=== PATIENT | male | born 1975 | race Caucasian/White ===

== ENCOUNTER 2025-02-16 07:59 | Outpatient (CLI) | payer BC, SELFPAY | END 2025-02-16 08:00 | disposition home or self-care (01) | LOC: NFLDREF 02-22 00:24 | PROVIDERS: PCP Family Medicine; Referring Provider Family Medicine; Visit Provider Family Medicine | DX: E66.9 Obesity, unspecified (principal); Z12.5 Encounter for screening for malignant neoplasm of prostate; Z80.42 Family history of malignant neoplasm of prostate; Z13.6 Encounter for screening for cardiovascular disorders | CPT/HCPCS: 80053; 80061; G0103 ==

== ENCOUNTER 2025-03-22 10:07 | Outpatient (CLI) | payer BC, SELFPAY ==
--- NOTE | 2025-03-22 11:25 | P.ANES_ITS ---
Anesthesia Charges Start Date/Time Anesthesia Start Date: 03/22/25 Anesthesia Start Time: 10:55 Stop Date/Time Anesthesia Stop Date: 03/22/25 Anesthesia Stop Time: 11:25 Coding CPT Codes CPT Codes: ANES LWR INTST NDSC NOS - [id number] ([id number]) P3 - PATIENT W/SEVERE SYS DISEASE, QX - PETROLOGIST SVC W/ MD MED DIRECTION, QK - WIND ENERGY TECHNICIAN 2-4 CNCRNT ANES PROC
--- NOTE | 2025-03-22 11:25 | W.ANESCHARGE ---
Anesthesia Charges Start Date/Time Anesthesia Start Date: 03/22/25 Anesthesia Start Time: 10:55 Stop Date/Time Anesthesia Stop Date: 03/22/25 Anesthesia Stop Time: 11:25 Coding CPT Codes CPT Codes: ANES LWR INTST NDSC NOS - [id number] ([id number]) P3 - PATIENT W/SEVERE SYS DISEASE, QX - MECHANICAL SYSTEMS CONTROL ENGINEER SVC W/ MD MED DIRECTION, QK - FEEDER TENDER 2-4 CNCRNT ANES PROC
--- NOTE | 2025-03-22 11:34 | P.ANES_ITS ---
Anesthesia Charges Start Date/Time Anesthesia Start Date: 03/22/25 Anesthesia Start Time: 10:55 Stop Date/Time Anesthesia Stop Date: 03/22/25 Anesthesia Stop Time: 11:25 Coding CPT Codes CPT Codes: ANES LWR INTST NDSC NOS - [id number] ([id number]) QK - PAYABLE MANAGER 2-4 CNCRNT ANES PROC, QX - MILK HANDLER SVC W/ MED DIRECTION, P3 - PATIENT W/SEVERE SYS DISEASE
--- NOTE | 2025-03-22 11:34 | W.ANESCHARGE ---
Anesthesia Charges Start Date/Time Anesthesia Start Date: 03/22/25 Anesthesia Start Time: 10:55 Stop Date/Time Anesthesia Stop Date: 03/22/25 Anesthesia Stop Time: 11:25 Coding CPT Codes CPT Codes: ANES LWR INTST NDSC NOS - [id number] ([id number]) QK - WEB APPLICATIONS PROGRAMMER 2-4 CNCRNT ANES PROC, QX - GENERAL PRACTITIONER SVC W/ MED DIRECTION, P3 - PATIENT W/SEVERE SYS DISEASE
== END 2025-03-22 10:08 | disposition home or self-care (01) ==
LOC: OP CLINIC 10:08
PROVIDERS: PCP Family Medicine; Visit Provider Surgery
DX: Z12.11 Encounter for screening for malignant neoplasm of colon (principal); D12.2 Benign neoplasm of ascending colon; D12.3 Benign neoplasm of transverse colon
CPT/HCPCS: 00811; 00812; 45385; 88305; J2704